=== PATIENT | male | born 1990 | race African-American/Black ===

== ENCOUNTER 2020-08-31 17:59 | Emergency (ER) | payer MEDICAID ==
[~2020-08-31] VITALS: Ht 177.8 cm; Wt 104.6 kg
[2020-08-31 18:58] LABS: BASOPHILS % 1.9 % (0.0-2.0); EOSINOPHILS % 2.4 % (0.0-5.0); HEMATOCRIT. 43.6 % (42.0-52.0); HEMOGLOBIN. 14.6 g/dL (14.0-18.0); LYMPHOCYTES % 46.5 % (20.0-50.0); MEAN CORPUSCULAR HEMOGLOBIN 28.7 pg (28.0-32.0); MEAN CORPUSCULAR VOLUME 85.6 fL (80.0-94.0); MEAN PLATELET VOLUME 7.6 fl (7.4-10.4); MONOCYTES % 9.2 % (2.0-8.0); PLATELET 361 x1000/uL (130-400); RED CELL DISTRIBUTION WIDTH 14.4 % (11.6-14.6)
[2020-08-31 18:59] LABS: CHLORIDE 107 mEq/L (98-107)
[2020-08-31] MEDS ORDERED: HEPARIN 25,000 UNITS PREMIX 250 ML IV ONE ×2 (19:30→21:45)
[2020-08-31] MEDS ORDERED: HEPARIN 5000 UNITS/ML VIAL IV ONE (19:30)
[2020-08-31] MEDS ORDERED: NITROGLYCERIN OINT 1GM/INCH UDPKT TD ONE (19:30)
[2020-08-31 19:55] LABS: INR 0.9; PARTIAL THROMBOPLASTIN TIME 29.3 sec (23.4-31.0); PROTHROMBIN TIME 9.7 sec (9.6-11.0)
[2020-08-31] MEDS ORDERED: HEPARIN 5000 UNITS/ML VIAL IV NR (21:45)
[2020-08-31] MEDS ORDERED: HEPARIN 5000 UNITS/ML VIAL IV PRN ×2 (22:17)
[2020-08-31] MEDS ORDERED: HEPARIN 25,000 UNITS PREMIX 250 ML IV PRN (22:30)
[2020-08-31] MEDS ORDERED: HYDROCODONE/ACETAMINOPHEN 5/325MG TABLET PO PRN (23:00)
[2020-08-31] MEDS ORDERED: ONDANSETRON HCL 4MG/2ML INJ IV PRN (23:00)
[2020-08-31] MEDS ORDERED: CLONIDINE 0.1MG TABLET PO PRN (23:00)
[2020-08-31] MEDS ORDERED: DOCUSATE SODIUM 100MG CAPSULE PO PRN (23:00)
[2020-08-31] MEDS ORDERED: MAGNESIUM/ALUMINUM HYDROXIDE/SIMETHICONE 30ML UDC PO PRN (23:00)
[2020-08-31] MEDS ORDERED: ACETAMINOPHEN 325MG TABLET PO PRN (23:00)
[2020-08-31] MEDS ORDERED: IOHEXOL-350 100 ML BOTTLE ONE (23:17)
[2020-09-01 04:41] LABS: BASOPHILS % 1.5 % (0.0-2.0); EOSINOPHILS % 2.3 % (0.0-5.0); HEMATOCRIT. 42.7 % (42.0-52.0); HEMOGLOBIN. 14.2 g/dL (14.0-18.0); LYMPHOCYTES % 48.5 % (20.0-50.0); MEAN CORPUSCULAR HEMOGLOBIN 28.6 pg (28.0-32.0); MEAN CORPUSCULAR VOLUME 86.2 fL (80.0-94.0); MEAN PLATELET VOLUME 7.6 fl (7.4-10.4); MONOCYTES % 8.7 % (2.0-8.0); PLATELET 333 x1000/uL (130-400); RED BLOOD CELL COUNT 4.95 mill/uL (4.7-6.1); RED CELL DISTRIBUTION WIDTH 14.5 % (11.6-14.6)
[2020-09-01 04:51] LABS: CHLORIDE 106 mEq/L (98-107)
[2020-09-01 04:55] LABS: PHOSPHORUS 4.1 mg/dL (2.5-4.9)
[2020-09-01 04:56] LABS: LDL CHOLESTEROL 113 mg/dL (5-100)
[2020-09-01 04:58] LABS: HDL CHOLESTEROL 53 mg/dL (40-59)
[2020-09-01] MEDS ORDERED: PANTOPRAZOLE SODIUM 40 MG/VIAL IV SCH (09:00)
[2020-09-01 14:52] LABS: PROTHROMBIN TIME 10.4 sec (9.6-11.0)
[2020-09-01 20:28] VITALS: BP 120/69
== END 2020-09-01 20:30 | disposition left against medical advice (07) ==
LOC: ER 18:22 → CANBEDREQ 09-01 23:23
DX: R07.89 Other chest pain (principal); I10 Essential (primary) hypertension; Z20.822 Contact with and (suspected) exposure to COVID-19; F12.90 Cannabis use, unspecified, uncomplicated
CPT/HCPCS: 36415; 71045; 71275; 80048; 80061; 83036; 83735; 84100; 84443; 84484; 85025; 85610; 85730; 87426; 93005; 93970; 96374; 96375; 96376; 99291; C9113; J1644; Q9967